=== PATIENT | female | born 1985 | race Caucasian/White ===

== ENCOUNTER 2018-05-21 23:39 | Inpatient (IN) | payer OTHER ==
[~2018-05-21] VITALS: Ht 172.7 cm; Wt 68.9 kg
[2018-05-22] MEDS ORDERED: LIDOCAINE 1%, 50ML ONE (00:01)
[2018-05-22] MEDS ORDERED: NEWBORN KIT ONE (00:01)
[2018-05-22] MEDS ORDERED: D5%-LACTATED RINGERS 1,000 ML IV SCH (00:01)
[2018-05-22] MEDS ORDERED: LACTATED RINGERS 1,000 ML IV SCH ×3 (00:01→01:22)
[2018-05-22] MEDS ORDERED: MISOPROSTOL 200 MCG TABLET ONE (00:01)
[2018-05-22] MEDS ORDERED: OXYTOCIN 30U/ 0.9% NaCL 500ML 500 ML IV ONE (00:01)
[2018-05-22] MEDS ORDERED: OXYTOCIN 30U/ 0.9% NaCL 500ML 0 ML ONE (00:02)
[2018-05-22] MEDS ORDERED: BETAMETHASONE 6 MG/ML, 5ML IM ONE (00:02)
[2018-05-22] MEDS ORDERED: METOCLOPRAMIDE 5 MG/ML, 2ML IVPush PRN (00:30)
[2018-05-22] MEDS ORDERED: CALCIUM CARBONATE 500 MG TAB.CHEW PO PRN ×2 (00:30→11:00)
[2018-05-22] MEDS ORDERED: TERBUTALINE 1 MG/ML, 1ML IVPush PRN (00:30)
[2018-05-22] MEDS ORDERED: ONDANSETRON 2MG/ML, 2ML IVPush PRN (00:30)
[2018-05-22] MEDS ORDERED: PENICILLIN GK 5,000,000 UNITS in SODIUM CHLORIDE 0.9% 100 ML IVPB ONE (00:30)
[2018-05-22] MEDS ORDERED: FENTANYL PF 100 MCG/2ML IV PRN (00:30)
[2018-05-22] MEDS ORDERED: FENTANYL PF 100 MCG/2ML IVPush PRN (00:30)
[2018-05-22] MEDS ORDERED: SODIUM CITRATE/CITRIC ACID 30 ML UDC PO PRN (00:30)
[2018-05-22 00:39] LABS: BASOPHILS # (AUTO) 0.01 x10^3/uL (0-0.1); BASOPHILS % (AUTO) 0 % (0-1); EOSINOPHILS # (AUTO) 0.05 x10^3/uL (0-0.4); EOSINOPHILS % (AUTO) 1 % (1-7); LYMPHOCYTES # (AUTO) 1.26 x10^3/uL (1-3.4); LYMPHOCYTES % (AUTO) 13 % (22-44); MD NO; MEAN CORPUSCULAR HEMOGLOBIN 31.7 pg (27.0-34.8); MEAN CORPUSCULAR HGB CONC 33.9 g/dL (32.4-35.8); MEAN CORPUSCULAR VOLUME 93.5 fL (80-100); MEAN PLATELET VOLUME 10.5 fL (7.4-10.4); MONOCYTES # (AUTO) 0.53 x10^3/uL (0.2-0.8); MONOCYTES % (AUTO) 5 % (2-9); NEUTROPHILS # (AUTO) 7.99 x10^3/uL (1.8-6.8); NEUTROPHILS % (AUTO) 81 % (42-75); PLATELET COUNT 140 x10^3/uL (130-400); RED BLOOD COUNT 4.03 x10^6/uL (3.82-5.3)
[2018-05-22] MEDS: BETAMETHASONE 6 MG/ML, 5ML IM SCH ×2 (00:40→09:00)
[2018-05-22 00:45] LABS: MICROSCOPIC INDICATED
[2018-05-22] MEDS ORDERED: FENTANYL/BUPIV./NS/PF 250 ML EPIDCONT SCH ×2 (00:46→01:22)
[2018-05-22] MEDS ORDERED: FENTANYL PF 500 MCG, BUPIVACAINE/PF 0.5%, 30ML 62.5 ML in SODIUM CHLORIDE 0.9% 177.5 ML EPIDCONT SCH (01:00)
[2018-05-22] MEDS ORDERED: LACTATED RINGERS 1,000 ML IVBOLUS PRN ×2 (01:00→01:30)
[2018-05-22] MEDS ORDERED: BUPIVACAINE 0.25% ONE (01:24)
[2018-05-22] MEDS ORDERED: NALOXONE 0.4 MG/ML, 1ML IVPush PRN (01:30)
[2018-05-22] MEDS ORDERED: EPHEDRINE 50 MG/ML, 1ML IVPush PRN (01:30)
[2018-05-22] MEDS: PENICILLIN GK 2,500,000 UNITS in DEXTROSE 5% 100 ML IVPB SCH ×2 (04:13→08:46)
[2018-05-22] MEDS ORDERED: OXYTOCIN 30U/ 0.9% NaCL 500ML 500 ML IV SCH (10:47)
[2018-05-22] MEDS: PRENATAL VIT/IRON/FA 1 EACH TABLET PO SCH (11:00)
[2018-05-22] MEDS ORDERED: OXYcodone/APAP 5/325MG TABLET PO PRN ×2 (11:00)
[2018-05-22] MEDS ORDERED: METHYLERGONOVINE 0.2 MG/ML IM PRN (11:00)
[2018-05-22] MEDS ORDERED: MISOPROSTOL 200 MCG TABLET PO PRN (11:00)
[2018-05-22] MEDS ORDERED: ONDANSETRON 2MG/ML, 2ML IV PRN (11:00)
[2018-05-22] MEDS ORDERED: IBUPROFEN 600 MG TABLET ONE (12:32)
[2018-05-22] MEDS ORDERED: OXYTOCIN 30U/ 0.9% NaCL 500ML 500 ML ONE (12:33)
[2018-05-22] MEDS: IBUPROFEN 600 MG TABLET PO PRN ×3 (12:34→21:03)
[2018-05-22 13:20] VITALS: BP 99/64
[2018-05-22 18:30] LABS: BASOPHILS % (AUTO) 0 % (0-1); EOSINOPHILS % (AUTO) 0 % (1-7); LYMPHOCYTES # (AUTO) 1.11 x10^3/uL (1-3.4); LYMPHOCYTES % (AUTO) 7 % (22-44); MD NO; MEAN CORPUSCULAR HEMOGLOBIN 32.6 pg (27.0-34.8); MEAN CORPUSCULAR HGB CONC 34.5 g/dL (32.4-35.8); MEAN CORPUSCULAR VOLUME 94.5 fL (80-100); MEAN PLATELET VOLUME 10.6 fL (7.4-10.4); MONOCYTES # (AUTO) 1.03 x10^3/uL (0.2-0.8); MONOCYTES % (AUTO) 6 % (2-9); NEUTROPHILS # (AUTO) 14.67 x10^3/uL (1.8-6.8); NEUTROPHILS % (AUTO) 87 % (42-75); PLATELET COUNT 121 x10^3/uL (130-400); RED BLOOD COUNT 3.29 x10^6/uL (3.82-5.3); RED CELL DISTRIBUTION WIDTH 13.1 % (9.6-15.2)
[2018-05-22 20:00] VITALS: BP 95/59
[2018-05-23 00:44] VITALS: BP 95/59
[2018-05-23 04:30] VITALS: BP 97/58
[2018-05-23] MEDS: IBUPROFEN 600 MG TABLET PO PRN ×3 (05:50→21:38)
[2018-05-23 07:30] VITALS: BP 97/62
[2018-05-23] MEDS: PRENATAL VIT/IRON/FA 1 EACH TABLET PO SCH (13:03)
[2018-05-23] MEDS: DOCUSATE 100 MG CAPSULE PO PRN ×2 (13:04→21:39)
[2018-05-23 20:00] VITALS: BP 99/58
[2018-05-24 07:20] VITALS: BP 95/65
[2018-05-24] MEDS: DOCUSATE 100 MG CAPSULE PO PRN (07:38)
[2018-05-24] MEDS: PRENATAL VIT/IRON/FA 1 EACH TABLET PO SCH (07:38)
[2018-05-24] MEDS: IBUPROFEN 600 MG TABLET PO PRN (07:38)
[2018-05-24] MEDS ORDERED: IBUP-1222 PO (10:42)
== END 2018-05-24 12:32 | disposition home or self-care (01) | DRG 775 ==
LOC: LDOP 23:39 → LDIP 05-22 00:04 → 2NW 05-22 13:15
PROVIDERS: ADMIT Obstetrics & Gynecology; ATTEND Obstetrics & Gynecology
PROC: 10E0XZZ Delivery of Products of Conception, External Approach (ICD-10-PCS; principal; 2018-05-22)
PROC: 0KQM0ZZ Repair Perineum Muscle, Open Approach (ICD-10-PCS; 2018-05-22)
PROC: 3E0R3BZ Introduction of Anesthetic Agent into Spinal Canal, Percutaneous Approach (ICD-10-PCS; 2018-05-22)
PROC: 00HU33Z Insertion of Infusion Device into Spinal Canal, Percutaneous Approach (ICD-10-PCS; 2018-05-22)
DX: O60.14X0 Preterm labor third trimester with preterm delivery third trimester, not applicable or unspecified (principal); O99.354 Diseases of the nervous system complicating childbirth; Z37.0 Single live birth; O70.1 Second degree perineal laceration during delivery; Z3A.35 35 weeks gestation of pregnancy; Z80.3 Family history of malignant neoplasm of breast; Z80.42 Family history of malignant neoplasm of prostate; Z87.442 Personal history of urinary calculi; G43.909 Migraine, unspecified, not intractable, without status migrainosus
CPT/HCPCS: 36415; 81001; 82803; 85025; 86850; 86900; 87081; 87086; 96372; 99285; G0378; J0702; J2540; J3010; J3490; J2590; J7050; J7120